=== PATIENT | female | born 1995 | race Caucasian/White ===

== ENCOUNTER 2018-06-05 17:54 | Emergency (ER) | payer BC ==
[2018-06-05] MEDS ORDERED: Sodium Chloride 0.9% 2.5 ML Syringe FLUSH PRN (18:10)
[2018-06-05] MEDS ORDERED: Sodium Chloride 0.9% 10 ML Syringe FLUSH PRN (18:10)
[2018-06-05] MEDS ORDERED: Sodium Chloride 0.9% 1,000 ML IV ONE (18:10)
[2018-06-05] MEDS ORDERED: Ondansetron 4 MG/2 ML SDV IVPUSH ONE (18:10)
[2018-06-05] MEDS ORDERED: diphenhydrAMINE 50 MG/ML SDV IVPUSH ONE (18:13)
--- NOTE | 2018-06-05 18:13 | EDM.PDOC ---
ED HPI GENERAL MEDICAL PROBLEM - General Chief Complaint: Headache Stated Complaint: HEADACHE 9 WEEKS PREG. Time Seen by Provider: 06/05/18 18:10 Source of Information: Reports: Patient History Limitations: Reports: No Limitations - History of Present Illness INITIAL COMMENTS - FREE TEXT/NARRATIVE: HISTORY AND PHYSICAL: History of present illness: Patient is a 22-year-old female 9 weeks gestation here with complaint of migraine. She has history of migraines, states she can usually relieve them with tylenol, massage and rest. She states this migraine started this morning and has persisted all day despite her usual measures to relieve symptoms. She reports photophobia, nausea, and vomiting. She denies fevers, chills, abdominal pain, vaginal discharge or bleeding. She did call the OB technical operations manager and was told to come to ED as she has not been able to keep fluids down today. She sees Dr. Reza at [facility]. She rates her pain an 8/10. She did take some tylenol this afternoon around 4pm but states she threw up shortly after this. Review of systems: As per history of present illness and below otherwise all systems reviewed and negative. Past medical history: As per history of present illness and as reviewed below otherwise noncontributory. Surgical history: As per history of present illness and as reviewed below otherwise noncontributory. Social history: No reported history of drug or alcohol abuse. Family history: As per history of present illness and as reviewed below otherwise noncontributory. Physical exam: General: Patient sitting comfortably in no acute distress and nontoxic appearing HEENT: Atraumatic, normocephalic, pupils reactive, negative for conjunctival pallor or scleral icterus, mucous membranes moist, throat clear, neck supple, nontender, trachea midline. No meningeal signs. Lungs: Clear to auscultation, breath sounds equal bilaterally, chest nontender. Heart: S1S2, regular, negative for clicks, rubs, or overt murmur. Abdomen: Soft, nondistended, nontender. Negative for masses or hepatosplenomegaly. Negative for costovertebral tenderness. Pelvis: Stable nontender. Genitourinary: Deferred. Rectal: Deferred. Extremities: Atraumatic, negative for cords or calf pain. Neurovascular unremarkable. Neuro: Awake, alert, oriented. Cranial nerves II through XII unremarkable. Cerebellum unremarkable. Motor and sensory unremarkable throughout. Exam nonfocal. Notes: Patient rates her pain 6/10 after therapeutics. Diagnostics: CBC, CMP Therapeutics: 1L Normal Saline IV 4mg Zofran IV 50mg Benadryl IV Tylenol 650mg PO Prescriptions: Zofran Impression: Headache Plan: 1. Drink plenty of fluids and rest as instructed. Take zofran as needed for nausea and vomiting 2. Follow with training program developer 3. Return to ED As needed as discussed Definitive disposition and diagnosis as appropriate pending reevaluation and review of above. 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 - Physical Exam Exam: See Below (see dictation) Course - Vital Signs Last Recorded V/S: Last Vital Signs Temp 98.6 F 06/05/18 19:43 Pulse 78 06/05/18 19:43 Resp 14 06/05/18 19:43 BP 113/77 06/05/18 19:43 Pulse Ox 100 06/05/18 19:43 - Orders/Labs/Meds Orders: Active Orders 24 hr Category Date Time Status Sodium Chloride 0.9% [Saline Flush] Med 06/05/18 18:10 Active 10 ml FLUSH ASDIRECTED PRN Sodium Chloride 0.9% [Saline Flush] Med 06/05/18 18:10 Active 2.5 ml FLUSH ASDIRECTED PRN Saline Lock Insert [OM.PC] Stat Oth 06/05/18 18:10 Ordered Medication Orders Sodium Chloride (Saline Flush) 10 ml FLUSH ASDIRECTED PRN PRN Reason: Keep Vein Open Sodium Chloride (Saline Flush) 2.5 ml FLUSH ASDIRECTED PRN PRN Reason: Keep Vein Open Labs: Laboratory Tests 06/05/18 06/05/18 Range/Units 18:35 18:35 WBC 11.18 H (4.0-11.0) K/uL RBC 4.73 (4.30-5.90) M/uL Hgb 14.8 (12.0-16.0) g/dL Hct 41.5 (36.0-46.0) % MCV 87.7 (80.0-98.0) fL MCH 31.3 (27.0-32.0) pg MCHC 35.7 (31.0-37.0) g/dL RDW Std Deviation 42.2 (28.0-62.0) fl RDW Coeff of Ruel 13 (11.0-15.0) % Plt Count 273 (150-400) K/uL MPV 9.70 (7.40-12.00) fL Neut % (Auto) 81.1 H (48.0-80.0) % Lymph % (Auto) 12.3 L (16.0-40.0) % [place] % (Auto) 6.1 (0.0-15.0) % Eos % (Auto) 0.3 (0.0-7.0) % Baso % (Auto) 0.2 (0.0-1.5) % Neut # (Auto) 9.1 H (1.4-5.7) K/uL Lymph # (Auto) 1.4 (0.6-2.4) K/uL [place] # (Auto) 0.7 (0.0-0.8) K/uL Eos # (Auto) 0.0 (0.0-0.7) K/uL Baso # (Auto) 0.0 (0.0-0.1) K/uL Nucleated RBC % 0.0 /100WBC Nucleated RBCs # 0 K/uL Sodium 137 (136-145) mmol/L Potassium 3.5 (3.5-5.1) mmol/L Chloride 104 (98-107) mmol/L Carbon Dioxide 22.7 (21.0-32.0) mmol/L BUN 7 (7.0-18.0) mg/dL Creatinine 0.6 (0.6-1.0) mg/dL Est Cr Clr Drug Dosing 120.35 mL/min Estimated GFR (MDRD) > 60.0 ml/min Glucose 88 (74-106) mg/dL Calcium 9.9 (8.5-10.1) mg/dL Total Bilirubin 0.6 (0.2-1.0) mg/dL AST 14 L (15-37) IU/L ALT 12 L (14-63) IU/L Alkaline Phosphatase 58 (46-116) U/L Total Protein 7.3 (6.4-8.2) g/dL Albumin 3.8 (3.4-5.0) g/dL Globulin 3.5 (2.6-4.0) g/dL Albumin/Globulin Ratio 1.1 (0.9-1.6) Meds: Medications Generic Name Dose Route Start Last Admin Trade Name Freq PRN Reason Stop Dose Admin Sodium Chloride 10 ml 06/05/18 18:10 Saline Flush FLUSH ASDIRECTED PRN Keep Vein Open Sodium Chloride 2.5 ml 06/05/18 18:10 Saline Flush FLUSH ASDIRECTED PRN Keep Vein Open Discontinued Medications Generic Name Dose Route Start Last Admin Trade Name Freq PRN Reason Stop Dose Admin Acetaminophen 650 mg 06/05/18 19:16 06/05/18 19:22 Tylenol PO 06/05/18 19:17 650 mg NOW ONE Administration Diphenhydramine HCl 50 mg 06/05/18 18:13 06/05/18 18:22 Benadryl IVPUSH 06/05/18 18:14 50 mg ONETIME ONE Administration Sodium Chloride 1,000 mls @ 999 mls/hr 06/05/18 18:10 06/05/18 18:22 Normal Saline IV 06/05/18 19:10 999 mls/hr STAT ONE Administration Ondansetron HCl 4 mg 06/05/18 18:10 06/05/18 18:22 Zofran IVPUSH 06/05/18 18:11 4 mg ONETIME ONE Administration Departure - Departure Time of Disposition: 20:01 Disposition: Home, Self-Care 01 Condition: Good Clinical Impression: Headache in - Discharge Information Referrals: PCP,Unknown [Primary Care Provider] - Forms: ED Department Discharge Additional Instructions: The following information is given to patients seen in the emergency department who are being discharged to home. This information is to outline your options for follow-up care. We provide all patients seen in our emergency department with a follow-up referral. The need for follow-up, as well as the timing and circumstances, are variable depending upon the specifics of your emergency department visit. If you don't have a primary care physician on staff, we will provide you with a referral. We always advise you to contact your personal physician following an emergency department visit to inform them of the circumstance of the visit and for follow-up with them and/or the need for any referrals to a consulting specialist. The emergency department will also refer you to a specialist when appropriate. This referral assures that you have the opportunity for follow-up care with a specialist. All of these measure are taken in an effort to provide you with optimal care, which includes your follow-up. Under all circumstances we always encourage you to contact your private physician who remains a resource for coordinating your care. When calling for follow-up care, please make the office aware that this follow-up is from your recent emergency room visit. If for any reason you are refused follow-up, please contact the [facility] Emergency Department at and asked to speak to the emergency department charge nurse. [address] [address] 1. Drink plenty of fluids and rest as instructed. Take zofran as needed for nausea and vomiting 2. Follow with training program developer 3. Return to ED As needed as discussed - My Orders Last 24 Hours: My Active Orders 06/05/18 18:10 Sodium Chloride 0.9% [Saline Flush] 10 ml FLUSH ASDIRECTED PRN Sodium Chloride 0.9% [Saline Flush] 2.5 ml FLUSH ASDIRECTED PRN Saline Lock Insert [OM.PC] Stat - Assessment/Plan Last 24 Hours: My Active Orders 06/05/18 18:10 Sodium Chloride 0.9% [Saline Flush] 10 ml FLUSH ASDIRECTED PRN Sodium Chloride 0.9% [Saline Flush] 2.5 ml FLUSH ASDIRECTED PRN Saline Lock Insert [OM.PC] Stat
[2018-06-05 19:04] LABS: CHLORIDE,CL 104 mmol/L (98-107); SODIUM,NA 137 mmol/L (136-145)
[2018-06-05] MEDS ORDERED: Acetaminophen 325 MG Tab PO ONE (19:16)
== END 2018-06-05 20:13 | disposition home or self-care (01) ==
LOC: MW.ED 17:54
DX: O99.89 Other specified diseases and conditions complicating pregnancy, childbirth and the puerperium (principal); R51 Headache; Z3A.09 9 weeks gestation of pregnancy
CPT/HCPCS: 36415; 80053; 85025; 96361; 96374; 96375; 99283; A9270; J1200; J2405; J7040

== ENCOUNTER 2018-12-30 06:09 | Inpatient (IN) | payer BC ==
[2018-12-30] MEDS ORDERED: Oxytocin/0.9 % Sodium Chloride 0 UNIT/0 ML BAG ONE (06:18)
[2018-12-30] MEDS ORDERED: Misoprostol 200 MCG Tab PO PRN (06:21)
[2018-12-30] MEDS ORDERED: Tranexamic Acid 1,000 MG in Sodium Chloride 0.9% 100 ML IV PRN (06:21)
[2018-12-30] MEDS ORDERED: Lidocaine 1% 50 ML MDV INJECT PRN (06:21)
[2018-12-30] MEDS ORDERED: Methylergonovine 0.2 MG/1 ML Amp IM PRN (06:21)
[2018-12-30] MEDS ORDERED: Carboprost Tromethamine 250 MCG/1 ML Amp IM PRN (06:21)
[2018-12-30] MEDS ORDERED: Oxytocin 10 Units/1 ML SDV IM ONE (06:23)
[2018-12-30] MEDS ORDERED: Ibuprofen 400 MG Tab PO PRN (06:45)
[2018-12-30] MEDS ORDERED: Acetaminophen 500 MG Tab PO PRN ×2 (06:45)
[2018-12-30] MEDS ORDERED: Docusate Sodium 100 MG Cap PO PRN (06:45)
[2018-12-30] MEDS ORDERED: Benzocaine/Menthol 20%-0.5% Spray 78 GM Cannister TOP PRN (06:45)
[2018-12-30] MEDS ORDERED: Lanolin 100% Cream 7 GM Tube TOP PRN (06:45)
[2018-12-30] MEDS ORDERED: Ibuprofen 800 MG Tab PO PRN (06:45)
[2018-12-30] MEDS ORDERED: Witch Hazel Medicated Pads 40/Jar TOP PRN (06:45)
[2018-12-30] MEDS ORDERED: Bisacodyl 10 MG Supp RECTAL PRN (06:45)
--- NOTE | 2018-12-30 07:01 | PCM.DEL ---
L & D Note - General Info Date of Service: 12/30/18 Mother's Due Date: 01/09/19 - Delivery Note Labor: Spontaneous Delivery Outcome: Livebirth Infant Delivery Method: Spontaneous Vaginal Delivery-Single Anesthesia Type: None Laceration: None Placenta: Intact, Spontaneous Provider: Jing Villarreal Delivery Comments (Free Text/Narrative):: 23yo at 38w4d presenting in spontaneous labor, precipitously delivered in the parking lot of the hospital. Nursing team evaluated the baby, who was pink, crying and moving all extremities. She was brought to L&D. Cord was clamped and cut. I was present at this time. Placenta was delivered with gentle traction on the umbilical cord. No lacerations. Pitocin IM given. Fundus was firm and at the umbilicus. Bleeding minimal. Patient tolerated the delivery well, given instructions. - General Info Date of Service: 12/30/18 - Patient Data Med Orders - Current: Current Medications Acetaminophen (Tylenol Extra Strength) 500 mg PO Q4H PRN PRN Reason: Pain Acetaminophen (Tylenol Extra Strength) 1,000 mg PO Q4H PRN PRN Reason: Pain Benzocaine/Menthol (Dermoplast Pain Relief 20%-0.5% Flynn) 78 gm TOP ASDIRECTED PRN PRN Reason: Perineal Comfort Measure Bisacodyl (Dulcolax) 10 mg RECTAL ONETIME PRN PRN Reason: Constipation Carboprost Tromethamine (Hemabate Ds) 250 mcg IM ASDIRECTED PRN PRN Reason: Post Hemorrhage Docusate Sodium (Colace) 100 mg PO BID PRN PRN Reason: Constipation Emollient Ointment (Lansinoh Hpa) 0 gm TOP ASDIRECTED PRN PRN Reason: Sore Nipples Tranexamic Acid 1,000 mg/ (Sodium Chloride) 110 mls @ 660 mls/hr IV ONETIME PRN PRN Reason: Bleeding Ibuprofen (Motrin) 400 mg PO Q4H PRN PRN Reason: Pain Ibuprofen (Motrin) 800 mg PO Q6H PRN PRN Reason: Pain Lidocaine HCl (Xylocaine 1%) 50 ml INJECT ONETIME PRN PRN Reason: Laceration repair Methylergonovine Maleate (Methergine) 0.2 mg IM ASDIRECTED PRN PRN Reason: Post Hemorrhage Misoprostol (Cytotec) 200 mcg PO ONETIME PRN PRN Reason: Post Hemorrhage Witch Lindsay (Tucks) 1 pad TOP ASDIRECTED PRN PRN Reason: comfort care Discontinued Medications Oxytocin/Sodium Chloride (Oxytocin 30 Unit/500 Ml-Ns) Confirm Administered Dose 30 unit in 500 mls @ as directed .ROUTE .STK-MED ONE Stop: 12/30/18 06:19 Oxytocin (Pitocin) 10 unit IM ONETIME ONE Stop: 12/30/18 06:24 Last Admin: 12/30/18 06:43 Dose: 10 unit - Problem List Review Problem List Initiated/Reviewed/Updated: Yes - My Orders Last 24 Hours: My Active Orders 12/30/18 06:21 Patient Status [ADT] Routine May Shower [RC] ASDIRECTED Notify Provider [RC] PRN Up ad Lala [RC] ASDIRECTED Vaginal Exam [RC] PRN Vital Signs [RC] PER UNIT ROUTINE CBC W/O DIFF,HEMOGRAM [HEME] Routine TYPE AND SCREEN [BBK] Routine Carboprost Tromethamine [Hemabate DS] 250 mcg IM ASDIRECTED PRN Lidocaine 1% [Xylocaine 1%] 50 ml INJECT ONETIME PRN Methylergonovine [Methergine] 0.2 mg IM ASDIRECTED PRN Tranexamic Acid [Cyklokapron] 1,000 mg Sodium Chloride 0.9% [Normal Saline] 100 ml IV ONETIME miSOPROStol [Cytotec] 200 mcg PO ONETIME PRN Resuscitation Status Routine 12/30/18 06:45 Patient Status [ADT] Routine May Shower [RC] ASDIRECTED Up ad Lala [RC] ASDIRECTED Vital Signs [RC] PER UNIT ROUTINE Acetaminophen [Tylenol Extra Strength] 1,000 mg PO Q4H PRN Acetaminophen [Tylenol Extra Strength] 500 mg PO Q4H PRN Benzocaine/Menthol [Dermoplast Pain Relief 20%-0.5% Flynn] 78 gm TOP ASDIRECTED PRN Bisacodyl [Dulcolax] 10 mg RECTAL ONETIME PRN Docusate Sodium [Colace] 100 mg PO BID PRN Ibuprofen [Motrin] 400 mg PO Q4H PRN Ibuprofen [Motrin] 800 mg PO Q6H PRN Lanolin [Lansinoh HPA] See Dose Instructions TOP ASDIRECTED PRN Witch Lindsay [Tucks] 1 pad TOP ASDIRECTED PRN Assess Lochia [WOMSER] Per Unit Routine Assess Uterine Involution [WOMSER] Per Unit Routine Breast Pump [WOMSER] Per Unit Routine Perineal Care [OM.PC] Per Unit Routine Peripheral IV Discontinue [OM.PC] Routine Sitz Bath [OM.PC] Per Unit Routine 12/30/18 06:46 Ice Therapy [OM.PC] Per Unit Routine 12/31/18 05:11 HEMOGLOBIN/HEMATOCRIT,HH [HEME] Timed
--- NOTE | 2018-12-31 10:27 | PCM.PNPP ---
- General Info Date of Service: 12/31/18 Functional Status: Reports: Pain Controlled, Tolerating Diet, Ambulating, Urinating, Other (Breast feeding well, minimal lochia) - Review of Systems General: Reports: No Symptoms Pulmonary: Reports: No Symptoms Cardiovascular: Reports: No Symptoms Gastrointestinal: Reports: No Symptoms - Patient Data Vital Signs - Most Recent: Last Vital Signs Temp 36.4 C 12/31/18 07:15 Pulse 77 12/31/18 07:15 Resp 16 12/31/18 07:15 BP 129/71 12/31/18 07:15 Pulse Ox 98 12/31/18 07:15 Weight - Most Recent: 66.678 kg I&O - Last 24 Hours: Intake & Output 12/30/18 12/31/18 12/31/18 22:59 06:59 14:59 Intake Total 0 Balance 0 Lab Results - Last 24 Hours: Laboratory Results - last 24 hr 12/30/18 12/31/18 Range/Units 07:33 06:45 Hgb 11.1 L (12.0-16.0) g/dL Hct 34.9 L (36.0-46.0) % Screen NEGATIVE (NEGATIVE) RhIG Candidate? YES Rhogam Indicated YES, BABY RH POS H Med Orders - Current: Current Medications Acetaminophen (Tylenol Extra Strength) 500 mg PO Q4H PRN PRN Reason: Pain Acetaminophen (Tylenol Extra Strength) 1,000 mg PO Q4H PRN PRN Reason: Pain Benzocaine/Menthol (Dermoplast Pain Relief 20%-0.5% [place]) 78 gm TOP ASDIRECTED PRN PRN Reason: Perineal Comfort Measure Bisacodyl (Dulcolax) 10 mg RECTAL ONETIME PRN PRN Reason: Constipation Carboprost Tromethamine (Hemabate Ds) 250 mcg IM ASDIRECTED PRN PRN Reason: Post Hemorrhage Docusate Sodium (Colace) 100 mg PO BID PRN PRN Reason: Constipation Emollient Ointment (Lansinoh Hpa) 0 gm TOP ASDIRECTED PRN PRN Reason: Sore Nipples Tranexamic Acid 1,000 mg/ (Sodium Chloride) 110 mls @ 660 mls/hr IV ONETIME PRN PRN Reason: Bleeding Ibuprofen (Motrin) 400 mg PO Q4H PRN PRN Reason: Pain Ibuprofen (Motrin) 800 mg PO Q6H PRN PRN Reason: Pain Last Admin: 12/30/18 17:38 Dose: 800 mg Lidocaine HCl (Xylocaine 1%) 50 ml INJECT ONETIME PRN PRN Reason: Laceration repair Methylergonovine Maleate (Methergine) 0.2 mg IM ASDIRECTED PRN PRN Reason: Post Hemorrhage Misoprostol (Cytotec) 200 mcg PO ONETIME PRN PRN Reason: Post Hemorrhage Witmaite Montoya (Tucks) 1 pad TOP ASDIRECTED PRN PRN Reason: comfort care Discontinued Medications Oxytocin/Sodium Chloride (Oxytocin 30 Unit/500 Ml-Ns) Confirm Administered Dose 30 unit in 500 mls @ as directed .ROUTE .STK-MED ONE Stop: 12/30/18 06:19 Oxytocin (Pitocin) 10 unit IM ONETIME ONE Stop: 12/30/18 06:24 Last Admin: 12/30/18 06:43 Dose: 10 unit - Infant Interaction Disposition, : Challenge in Room with Family Interaction: Holding Infant Feeding: Breastfed Infant; Nursed Well Support Person: Significant Other - Recovery Exam Fundal Tone: Firm Fundal Level: 2 Fingerbreadths Below Umbilicus Fundal Placement: Midline Lochia Amount: Scant Lochia Color: Rubra/Red Perineum Description: Intact, Minimal Bruising/Swelling Episiotomy/Laceration: None Bladder Status: Nonpalpable, Voiding Urinary Elimination: Voided - Exam General: Alert, Oriented GI/Abdominal Exam: Soft, Non-Tender Extremities: Normal Inspection, Non-Tender, No Pedal Edema Neurological: No New Focal Deficit Psy/Mental Status: Alert, Normal Affect, Normal Mood - Problem List & Annotations (1) Vaginal delivery SNOMED Code(s): 905243511 Code(s): O80 - ENCOUNTER FOR FULL-TERM UNCOMPLICATED DELIVERY Status: Acute Current Visit: Yes - Problem List Review Problem List Initiated/Reviewed/Updated: Yes - Assessment Assessment:: day 1, patient is doing well, no concerns, currently breast feeding without any problems. She plans to go home today. Baby is rh positive. - Plan Plan:: Discharge instructions reviewed, plan to discharge today.
== END 2018-12-31 11:20 | disposition home or self-care (01) | DRG 560 ==
LOC: MW.OBCHECK 06:09 → MW.OB 06:09 → MW.OBCHECK 06:21 → MW.OB 06:21 → OBSVTOIN 06:21 → MW.OB 14:30
PROVIDERS: ADMIT Obstetrics & Gynecology; ATTEND Obstetrics & Gynecology
PROC: 10E0XZZ Delivery of Products of Conception, External Approach (ICD-10-PCS; principal; 2018-12-30)
PROC: 3E033VJ Introduction of Other Hormone into Peripheral Vein, Percutaneous Approach (ICD-10-PCS; 2018-12-30)
DX: O62.3 Precipitate labor (principal); Z37.0 Single live birth; Z3A.38 38 weeks gestation of pregnancy
CPT/HCPCS: 36415; 59025; 59409; 85014; 85018; 85027; 85460; 86850; 86900; 86901; A9270-GY; J2590; J2792

== ENCOUNTER 2020-01-08 12:08 | Emergency (ER) | payer BC ==
[2020-01-08] MEDS ORDERED: Metoclopramide 10 MG/2 ML SDV IVPUSH ONE (12:35)
[2020-01-08] MEDS ORDERED: diphenhydrAMINE 50 MG/ML SDV IVPUSH ONE (12:35)
[2020-01-08] MEDS ORDERED: Ketorolac 30 MG/ML SDV IVPUSH ONE (12:35)
[2020-01-08] MEDS ORDERED: Sodium Chloride 0.9% 1,000 ML IV ONE (12:35)
--- NOTE | 2020-01-08 12:39 | EDM.PDOC ---
ED HPI GENERAL MEDICAL PROBLEM - General Chief Complaint: Headache Stated Complaint: MIGRAINE Time Seen by Provider: 01/08/20 12:12 Source of Information: Reports: Patient - History of Present Illness INITIAL COMMENTS - FREE TEXT/NARRATIVE: 24F PMHx migraines presents for apparent migraine SMITH. Has been very mild for last 3 days but got worse around 5AM and patient unable to go back to sleep. Took motrin earlier in AM and tylenol around 11AM with minimal relief. Worse with loud noises and bright lights. 1x episode vomiting with +nausea which is typical of her migraines. +generalized weakness but denies one-sided weakness or paralysis. Has not seen a neurologist for migraine disorder. Headache Pain Score (Numeric/FACES): 9 - Related Data Allergies Allergy/AdvReac Type Severity Reaction Status Date / Time No Known Allergies Allergy Verified 01/08/20 12:25 Home Meds: Home Meds Acetaminophen/Butalbital/Caff [Fioricet 325-50-40 MG] 1 each PO Q6H 10 Days #30 tab 01/08/20 [Rx] Past Medical History - Past Health History Medical/Surgical History: Denies Medical/Surgical History Cardiovascular History: Reports: None Respiratory History: Reports: None Gastrointestinal History: Reports: None Genitourinary History: Reports: None [employer] ENG[employer]ING History: Reports: Musculoskeletal History: Reports: None Neurological History: Reports: Migraines Psychiatric History: Reports: Anxiety, Depression, PTSD, Suicide Attempt, Suic idal Ideation Endocrine/Metabolic History: Reports: None Hematologic History: Reports: None Immunologic History: Reports: None Oncologic (Cancer) History: Reports: None Dermatologic History: Reports: None - Infectious Disease History Infectious Disease History: Reports: Chicken Pox - Past Surgical History Head Surgeries/Procedures: Reports: None HEENT Surgical History: Reports: Oral Surgery, Tonsillectomy Social & Family History - Family History Family Medical History: Noncontributory - Tobacco Use Smoking Status *Q: Former Smoker Used Tobacco, but Quit: Yes Month/Year Tobacco Last Used: 04/10 - Caffeine Use Caffeine Use: Reports: Coffee, Soda - Recreational Drug Use Recreational Drug Use: No ED ROS GENERAL - Review of Systems Review Of Systems: Comprehensive ROS is negative, except as noted in HPI. - Physical Exam Exam: See Below Exam Limited By: No Limitations General Appearance: Alert, WD/WN, No Apparent Distress Throat/Mouth: Normal Inspection, Normal Voice, No Airway Compromise Head Exam: Atraumatic, Normocephalic Neck: Normal Inspection, Full Range of Motion Respiratory/Chest: No Respiratory Distress, Lungs Clear, Normal Breath Sounds, No Accessory Muscle Use Cardiovascular: Normal Peripheral Pulses, Regular Rate, Rhythm Neuro Exam (Abbreviated): Alert, Oriented, CN II-XII Intact, Normal Cognition, No Motor/Sensory Deficits Extremities: Normal Inspection Psychiatric: Normal Affect, Normal Mood Skin Exam: Warm, Dry, Intact, Normal Color Course - Vital Signs Last Recorded V/S: Last Vital Signs Temp 97.8 F 01/08/20 12:21 Pulse 56 L 01/08/20 12:21 Resp 16 01/08/20 12:21 BP 107/64 01/08/20 12:21 Pulse Ox 97 01/08/20 12:21 - Orders/Labs/Meds Orders: Active Orders 24 hr Category Date Time Status COMPREHENSIVE METABOLIC PN,CMP [CHEM] Stat Lab 01/08/20 12:58 Received MAGNESIUM [CHEM] Stat Lab 01/08/20 12:58 Received Sodium Chloride 0.9% [Normal Saline] 1,000 ml Med 01/08/20 12:35 Active IV .BOLUS Medication Orders Sodium Chloride (Normal Saline) 1,000 mls @ 999 mls/hr IV .BOLUS ONE Stop: 01/08/20 13:35 Last Admin: 01/08/20 12:59 Dose: 999 mls/hr Documented by: HENRY Labs: Laboratory Tests 01/08/20 Range/Units 12:58 WBC 12.50 H (4.0-11.0) K/uL RBC 4.56 (4.30-5.90) M/uL Hgb 13.8 (12.0-16.0) g/dL Hct 40.5 (36.0-46.0) % MCV 88.8 (80.0-98.0) fL MCH 30.3 (27.0-32.0) pg MCHC 34.1 (31.0-37.0) g/dL RDW Std Deviation 44.0 (28.0-62.0) fl RDW Coeff of Ruel 14 (11.0-15.0) % Plt Count 237 (150-400) K/uL MPV 10.20 (7.40-12.00) fL Meds: Medications Generic Name Dose Route Start Last Admin Trade Name Alayna PRN Reason Stop Dose Admin Sodium Chloride 1,000 mls @ 999 mls/hr 01/08/20 12:35 01/08/20 12:59 Normal Saline IV 01/08/20 13:35 999 mls/hr .BOLUS ONE Administration Discontinued Medications Generic Name Dose Route Start Last Admin Trade Name Alayna PRN Reason Stop Dose Admin Diphenhydramine HCl 25 mg 01/08/20 12:35 01/08/20 12:59 Benadryl IVPUSH 01/08/20 12:36 25 mg ONETIME ONE Administration Ketorolac Tromethamine 15 mg 01/08/20 12:35 01/08/20 12:59 Toradol IVPUSH 01/08/20 12:36 15 mg ONETIME ONE Administration Metoclopramide HCl 10 mg 01/08/20 12:35 01/08/20 12:59 Reglan IVPUSH 01/08/20 12:36 10 mg ONETIME ONE Administration - Re-Assessments/Exams Free Text/Narrative Re-Assessment/Exam: 01/08/20 12:38 Low suspicion serious intracranial pathology w/ reassuring history and benign physical exam. Will defer CT imaging of head and tx for likely migraine SMITH. Will reassess and dispo accordingly. Basic labs ordered 01/08/20 13:28 SMITH improved to 5/10 pain. Will d/c with fioricet for presumed migraines, f/u with neurology Departure - Departure Time of Disposition: 13:28 Disposition: Home, Self-Care 01 Condition: Good Clinical Impression: Migraine - Discharge Information Prescriptions: Acetaminophen/Butalbital/Caff [Fioricet 325-50-40 MG] 1 each PO Q6H 10 Days #30 tab Instructions: Migraine Headache, [id number] Referrals: Luc Walters MD [Primary Care Provider] - Forms: ED Department Discharge Additional Instructions: The following information is given to patients seen in the emergency department who are being discharged to home. This information is to outline your options for follow-up care. We provide all patients seen in our emergency department with a follow-up referral. The need for follow-up, as well as the timing and circumstances, are variable depending upon the specifics of your emergency department visit. If you don't have a primary care physician on staff, we will provide you with a referral. We always advise you to contact your personal physician following an emergency department visit to inform them of the circumstance of the visit and for follow-up with them and/or the need for any referrals to a consulting specialist. The emergency department will also refer you to a specialist when appropriate. This referral assures that you have the opportunity for follow-up care with a specialist. All of these measure are taken in an effort to provide you with optimal care, which includes your follow-up. Under all circumstances we always encourage you to contact your private physician who remains a resource for coordinating your care. When calling for follow-up care, please make the office aware that this follow-up is from your recent emergency room visit. If for any reason you are refused follow-up, please contact the [facility] Emergency Department at and asked to speak to the emergency department charge nurse. Follow up with a neurologist: [facility]- Neurology professional [address], [address] [place] [address] Sepsis Event Note (ED) - Evaluation Sepsis Screening Result: No Definite Risk - Focused Exam Vital Signs: Vital Signs Temp Pulse Resp BP Pulse Ox 01/08/20 12:21 97.8 F 56 L 16 107/64 97 - My Orders Last 24 Hours: My Active Orders 01/08/20 12:35 Sodium Chloride 0.9% [Normal Saline] 1,000 ml IV .BOLUS 01/08/20 12:58 COMPREHENSIVE METABOLIC PN,CMP [CHEM] Stat MAGNESIUM [CHEM] Stat - Assessment/Plan Last 24 Hours: My Active Orders 01/08/20 12:35 Sodium Chloride 0.9% [Normal Saline] 1,000 ml IV .BOLUS 01/08/20 12:58 COMPREHENSIVE METABOLIC PN,CMP [CHEM] Stat MAGNESIUM [CHEM] Stat
[2020-01-08 13:29] LABS: BLOOD UREA NITROGEN,BUN 13 mg/dL (7.0-18.0); CARBON DIOXIDE,CO2 25.6 mmol/L (21.0-32.0); CHLORIDE,CL 106 mmol/L (98-107); GLUCOSE RANDOM 121 mg/dL (74-106); POTASSIUM,K 3.7 mmol/L (3.5-5.1); SODIUM,NA 142 mmol/L (136-145)
== END 2020-01-08 13:45 | disposition home or self-care (01) ==
LOC: MW.ED 12:08
DX: G43.909 Migraine, unspecified, not intractable, without status migrainosus (principal); R53.1 Weakness; Z87.891 Personal history of nicotine dependence
CPT/HCPCS: 36415; 80053; 83735; 85027; 96361; 96374; 96375; 99283; J1200; J1885; J2765; J7030; 99282

== ENCOUNTER 2023-02-06 14:02 | Inpatient (IN) | payer BC ==
[2023-02-06] MEDS ORDERED: Sodium Chloride 0.9% 2.5 ML Syringe FLUSH PRN (15:05)
[2023-02-06] MEDS ORDERED: Sodium Chloride 0.9% 10 ML Syringe FLUSH PRN (15:05)
[2023-02-06] MEDS ORDERED: Butorphanol 1 MG/ML SDV IVPUSH PRN (15:05)
[2023-02-06] MEDS ORDERED: Sodium Chloride 0.9% 20 ML SDV IV PRN (15:05)
[2023-02-06] MEDS ORDERED: Water For Irrigation,Sterile 1,000 ML Container IRR PRN (15:05)
[2023-02-06] MEDS ORDERED: Tranexamic Acid IN NACL,ISO-OS 1,000 MG in Premix Bag 1 BAG IV PRN ×4 (15:05→19:32)
[2023-02-06] MEDS ORDERED: Carboprost Tromethamine 250 MCG/1 mL Vial IM PRN ×2 (15:05→19:32)
[2023-02-06] MEDS ORDERED: Lidocaine 1% 50 ML MDV INJECT PRN (15:05)
[2023-02-06] MEDS ORDERED: Misoprostol 200 MCG Tab PO PRN (15:05)
[2023-02-06] MEDS ORDERED: Methylergonovine 0.2 MG/1 ML Amp IM PRN (15:05)
[2023-02-06] MEDS ORDERED: Nalbuphine 10 MG/0.5 ML Syringe IVPUSH PRN (15:08)
[2023-02-06] MEDS ORDERED: Ondansetron 4 MG/2 ML SDV IVPUSH PRN (15:09)
[2023-02-06 15:15] LABS: HEMATOCRIT 34.9 % (37.0-47.0); HEMOGLOBIN 11.4 g/dL (12.0-16.0); MEAN CORPUSCULAR HEMOGLOBIN 25.9 pg (28.0-32.0); MEAN CORPUSCULAR HGB CONC 32.7 g/dL (32.0-36.0); MEAN CORPUSCULAR VOLUME 79.3 fL (83.0-99.0); MEAN PLATELET VOLUME 10.5 fL (9.4-12.3); PLATELET COUNT,PLT 340 K/uL (150-400); WHITE BLOOD CELL COUNT,WBC 13.75 K/uL (3.9-11.3)
[2023-02-06] MEDS ORDERED: Oxytocin/0.9 % Sodium Chloride 30 UNIT/500 ML BAG IV SCH (15:15)
[2023-02-06] MEDS ORDERED: Lactated Ringers 1,000 ML IV SCH (15:15)
[2023-02-06 15:50] LABS: A/G RATIO 0.8 (0.9-1.6); BILIRUBIN TOTAL 0.3 mg/dL (0.2-1.0); CALCIUM 9.2 mg/dL (8.5-10.1); CARBON DIOXIDE,CO2 21.3 mmol/L (21.0-32.0); CREATININE 0.7 mg/dL (0.6-1.0); EST CRCL DRUG DOSING (CG) 107.38 mL/min; POTASSIUM,K 3.7 mmol/L (3.5-5.1); PROTEIN TOTAL,TP 6.7 g/dL (6.4-8.2); URIC ACID 4.1 mg/dL (2.6-7.2)
[2023-02-06] MEDS ORDERED: ePHEDrine 50 MG/ML SDV IVPUSH PRN ×2 (16:31)
[2023-02-06] MEDS ORDERED: Phenylephrine HCl 0.5 MG/5 ML AMP IVPUSH PRN (16:31)
[2023-02-06] MEDS ORDERED: Ropivacaine HCl/PF 400 MG in Premix Bag 1 BAG EPIDUR SCH (16:45)
[2023-02-06] MEDS ORDERED: Bisacodyl 10 MG Supp RECTAL PRN (19:32)
[2023-02-06] MEDS ORDERED: Acetaminophen 500 MG Tab PO PRN (19:32)
[2023-02-06] MEDS ORDERED: Ibuprofen 800 MG Tab PO PRN (19:32)
[2023-02-06] MEDS ORDERED: Benzocaine/Menthol 20%-0.5% Spray 78 GM Cannister TOP PRN (19:32)
[2023-02-06] MEDS ORDERED: Docusate Sodium 100 MG Cap PO PRN (19:32)
[2023-02-06] MEDS ORDERED: Witch Hazel Medicated Pads 40/Jar TOP PRN (19:32)
[2023-02-06] MEDS ORDERED: Lanolin 100% Cream 7 GM Tube TOP PRN (19:32)
[2023-02-06] MEDS ORDERED: Ibuprofen 400 MG Tab PO PRN (19:32)
[2023-02-06 20:05] LABS: PH,UMBILICAL ARTERIAL 7.261 (7.18-7.38); PH,UMBILICAL VENOUS 7.35 (7.25-7.45)
[2023-02-07] MEDS: Acetaminophen 500 MG Tab PO PRN ×2 (00:47→08:59)
[2023-02-07 08:00] LABS: HEMATOCRIT 31.1 % (37.0-47.0); HEMOGLOBIN 10.1 g/dL (12.0-16.0)
[2023-02-07] MEDS ORDERED: Ferrous Sulfate 325 MG Tab PO SCH (09:00)
[2023-02-07] MEDS ORDERED: [UNRECOGNIZED DRUG - OTHER] PO SCH (09:00)
[2023-02-07] MEDS ORDERED: Prenatal Multivitamin with Calcium/Folic Acid/Iron Tab PO SCH (09:00)
== END 2023-02-07 20:40 | disposition home or self-care (01) | DRG 560 ==
LOC: MW.OB 14:02 → MW.OBCHECK 14:02 → MW.OB 19:00 → OBSVTOIN 19:32 → MW.OB 21:48
PROVIDERS: ADMIT Obstetrics & Gynecology; ATTEND Obstetrics & Gynecology
PROC: 10E0XZZ Delivery of Products of Conception, External Approach (ICD-10-PCS; principal; 2023-02-06)
PROC: 10907ZC Drainage of Amniotic Fluid, Therapeutic from Products of Conception, Via Natural or Artificial Opening (ICD-10-PCS; 2023-02-06)
PROC: 3E0334Z Introduction of Serum, Toxoid and Vaccine into Peripheral Vein, Percutaneous Approach (ICD-10-PCS; 2023-02-06)
DX: O13.4 Gestational [pregnancy-induced] hypertension without significant proteinuria, complicating childbirth (principal); O99.02 Anemia complicating childbirth; Z37.0 Single live birth; Z3A.37 37 weeks gestation of pregnancy; O69.81X0 Labor and delivery complicated by cord around neck, without compression, not applicable or unspecified; O26.893 Other specified pregnancy related conditions, third trimester; Z67.11 Type A blood, Rh negative
CPT/HCPCS: 36415; 80053; 82803; 84550; 85014; 85018; 85027; 85460; 86592; 86850; 86900; 86901; A9270-GY; J2790